=== PATIENT | female | born 1990 | race American Indian/Alaskan Native ===

== ENCOUNTER 2016-11-28 10:45 | Emergency (ER) | payer BC ==
[2016-11-28 11:08] VITALS: BP 136/89
[2016-11-28] MEDS ORDERED: FLEXERIL PO ONE (11:34)
[2016-11-28] MEDS ORDERED: PERCOCET 5/325 PO ONE (11:34)
--- NOTE | 2016-11-28 11:35 | Emergency Department Report ---
HPI - General Chief Complaint: Back Pain/Injury Time Seen by Provider: 11/28/16 11:24 - HPI HPI: This is a 26-year-old patient here with left upper back pain that started yesterday reports radiating to shoulder. Pain worse with movement and better with resting. Pain is 8 out of 10 and achy. She says she took Advil with no relief. Patient says this has happened to her in the past. She works in a warehouse. Last menstrual period was 11/22/2016. Denies any nausea or vomiting. Denies any urinary burning, frequency or urgency. Denies any loss of bowel or bladder control. Denies any numbness or tingling to lower extremities. Denies any chest pain or shortness of breath. Patient has a history of high blood pressure which is controlled. ED Past Medical Hx - Past Medical History Previous Medical History?: No - Surgical History Past Surgical History?: No - Family History Family history: no significant - Social History Smoking Status: Current Every Day Smoker Substance Use Type: None Other Social History: single - Medications Home Medications: Home Medications Medication Instructions Recorded Confirmed Last Taken Type Cyclobenzaprine [Flexeril] 10 mg PO TID PRN #15 tablet 11/28/16 Unknown Rx Ibuprofen [Motrin] 600 mg PO Q8H PRN #15 tablet 11/28/16 Unknown Rx ED Review of Systems ROS: Stated complaint: BACK PAIN Other details as noted in HPI Comment: All other systems reviewed and negative Constitutional: no symptoms reported Respiratory: no symptoms reported Cardiovascular: denies: chest pain, palpitations, edema, syncope Gastrointestinal: denies: abdominal pain, nausea, vomiting, diarrhea, constipation Genitourinary: denies: urgency, dysuria, frequency, hematuria, discharge, abnormal menses Musculoskeletal: back pain, arthralgia. denies: joint swelling, myalgia Skin: denies: rash Neurological: denies: headache, weakness, numbness, paresthesias, confusion, abnormal gait, vertigo Physical Exam - Physical Exam Vital Signs: Vital Signs 11/28/16 11:03 Temperature 97.8 F Pulse Rate 66 Respiratory 16 Rate Blood Pressure 136/89 POX 100% on room air General: This is a 26-year-old female well-nourished well-developed in no acute distress Physical Exam: Head: Normocephalic, atraumatic, no abrasion, no bruising and no contusion. Eyes: Biateral pupils equal and reactive to light, bilateral EOM intact.. Bilateral conjunctival and sclera without injection, normal accommodation. Neck: Supple, no adenopathy, full range of motion and no C-spine tenderness. No swelling or tracheal deviation Cardiovascular: S1, S2. Regular rate and rhythm. No murmur. Capillary refill is less then 3 seconds. Lungs: Clear to auscultate bilaterally. No rhonchi, wheezes or rales. No chest wall tenderness MSK: Strength 5/5 in all extremities. No joint deformity or crepitus. Normal inspection. Full range of motion to all extremities except patient reports that it more painful with movement to her left shoulder. Extremities: No clubbing, cyanosis or edema. +2 pulses. No neurovascular compromise Neurological: GCS is 15, alert and oriented 3, normal gait, negative pronator drift, negative Romberg. No sensory or motor deficit. Speech is clear and fluid and no facial droop . Normal reflexes Back: Full range of motion, normal inspection, no paraspinal or vertebral tenderness. negative SLR bilaterally and no saddle anesthesia Skin: Clean, dry and intact. No rash or lesions. Psych: Normal mood and behavior. ED Course Vital Signs 11/28/16 11:03 Temperature 97.8 F Pulse Rate 66 Respiratory 16 Rate Blood Pressure 136/89 Pulse ox 100% on room air - Reevaluation(s) Reevaluation #1: 11/28/16 12:21 Patient given [place] 5/325 2 tablets and Flexeril 10 mg by mouth in emergency room for pain. ED Medical Decision Making - Medical Decision Making Assessment/plan ED course: Patient here complaining of left upper back pain and its radiating to her left shoulder and she's had similar incident in the past. Seen orthopedic doctor for problem. Physical findings shows no signs of bony abnormality to include dislocation or fracture. I discussed with patient that she might have a rotator cuff injury from lifting heavy objects at work repetitively and she will need to follow up with orthopedic doctor to evaluate her for rotator cuff injury. She voiced understanding of diagnosis and treatment plan and discharged home with her partner in stable condition. 1. Upper back pain, left 2.Arthralgia left shoulder Medication: Patient given [place] 5/325 mg 2 tablets emergency room and Flexeril 10 mg by mouth for relief of pain. Patient discharged home with prescription for Flexeril and Motrin. Patient instructed to follow up with orthopedic doctor in 2 days. Critical care attestation.: If time is entered above; I have spent that time in minutes in the direct care of this critically ill patient, excluding procedure time. ED Disposition Clinical Impression: Arthralgia of left shoulder region, Upper back pain on left side Disposition: DC-01 TO HOME OR SELFCARE Is pt being admited?: No Does the pt Need Aspirin: No Condition: Stable Instructions: Arthralgia (ED), Back Pain (ED) Additional Instructions: Please follow up with orthopedic doctor as instructed Do not drive or operate heavy machinery while taking Flexeril as this medication causes drowsiness Prescriptions: Cyclobenzaprine [Flexeril] 10 mg PO TID PRN #15 tablet PRN Reason: Muscle Spasm Ibuprofen [Motrin] 600 mg PO Q8H PRN #15 tablet PRN Reason: Pain Referrals: AGUILA BRUCE MD [Staff Physician] - 11/30/16 Forms: Work/School Release Form(ED)
== END 2016-11-28 12:40 | disposition home or self-care (01) ==
LOC: ED 10:45
DX: M25.512 Pain in left shoulder (principal); M54.6 Pain in thoracic spine; F17.200 Nicotine dependence, unspecified, uncomplicated
CPT/HCPCS: 99282

== ENCOUNTER 2017-01-08 12:18 | Emergency (ER) | payer SELFPAY ==
[2017-01-08 12:47] VITALS: BP 124/73
--- NOTE | 2017-01-08 12:56 | Emergency Department Report ---
ED General Adult HPI - General Chief complaint: Skin/Abscess/Foreign Body Stated complaint: KNOT ON BACK OF HEAD Time Seen by Provider: 01/08/17 12:42 Source: patient Mode of arrival: Ambulatory Limitations: No Limitations - History of Present Illness Initial comments: PT states she recently went to [address] for [employer]. PT states yesterday she had a small bump on the back of her head. PT states it has gradually increased in pain and size. Pt states she has hx of boils. MD Complaint: abscess -: Gradual, days(s) (2) Location: head Radiation: non-radiation Severity scale (0 -10): 10 Quality: sharp, constant Consistency: constant Associated Symptoms: fever/chills, rash (bumps to back of head ). denies: nausea/vomiting Treatments Prior to Arrival: none - Related Data Previous Rx's Medication Instructions Recorded Last Taken Type Acetaminophen/Codeine [Tylenol #3] 1 tab PO Q6H PRN #12 tab 01/08/17 Unknown Rx Clindamycin [Clindamycin CAP] 300 mg PO Q8H #30 cap 01/08/17 Unknown Rx Ibuprofen [Motrin] 600 mg PO Q8H PRN #15 tablet 01/08/17 Unknown Rx Allergies Allergy/AdvReac Type Severity Reaction Status Date / Time shellfish derived AdvReac Anaphylaxis Verified 11/28/16 11:33 ED Review of Systems ROS: Stated complaint: KNOT ON BACK OF HEAD Other details as noted in HPI Comment: All other systems reviewed and negative Constitutional: chills, other (could not sleep last night due to pain ). denies : fever Gastrointestinal: denies: abdominal pain Genitourinary: denies: abnormal menses (pt states she is irregular, deneis chance of ) Skin: rash (pt states bumps to back of head ) Neurological: headache ED Past Medical Hx - Past Medical History Previous Medical History?: No - Surgical History Past Surgical History?: No - Social History Smoking Status: Current Every Day Smoker Substance Use Type: Alcohol - Medications Home Medications: Home Medications Medication Instructions Recorded Confirmed Last Taken Type Acetaminophen/Codeine [Tylenol #3] 1 tab PO Q6H PRN #12 tab 01/08/17 Unknown Rx Clindamycin [Clindamycin CAP] 300 mg PO Q8H #30 cap 10/03/17 Unknown Rx Ibuprofen [Motrin] 600 mg PO Q8H PRN #15 tablet 01/08/17 Unknown Rx ED Physical Exam - General Limitations: No Limitations General appearance: alert, in no apparent distress - Head Head exam: Present: atraumatic, normocephalic, other (post head with 2 cm erythematous, indurated area, ttp, not fluculant ) - Eye Eye exam: Present: normal appearance, PERRL, EOMI. Absent: conjunctival injection, nystagmus - ENT ENT exam: Present: normal exam, mucous membranes moist, normal external ear exam - Neck Neck exam: Present: normal inspection, full ROM. Absent: tenderness, lymphadenopathy - Respiratory Respiratory exam: Present: normal lung sounds bilaterally. Absent: respiratory distress, chest wall tenderness - Cardiovascular Cardiovascular Exam: Present: regular rate, normal rhythm, normal heart sounds - GI/Abdominal GI/Abdominal exam: Present: soft. Absent: tenderness - Extremities Exam Extremities exam: Present: normal inspection, full ROM - Back Exam Back exam: Present: normal inspection, full ROM. Absent: tenderness, CVA tenderness (R), CVA tenderness (L) - Neurological Exam Neurological exam: Present: alert, oriented X3, CN II-XII intact, normal gait - Expanded Neurological Exam Expanded Patient oriented to: Present: person, place, time Speech: Present: fluid speech Best Eye Response (Carmella): (4) open spontaneously Best Motor Response (Carmella): (6) obeys commands Best Verbal Response (Carmella): (5) oriented [place] Total: 15 - Psychiatric Psychiatric exam: Present: normal affect, normal mood - Skin Skin exam: Present: warm, dry, intact, other (folliculitis noted to nape of neck with abscess ) ED Course Vital Signs 01/08/17 12:42 Temperature 98.3 F Pulse Rate 96 H Respiratory 18 Rate Blood Pressure 124/73 O2 Sat by Pulse 98 Oximetry - Reevaluation(s) Reevaluation #1: 01/08/17 13:00 PT aware that abscess is not ready to be drained. PT encouraged to refrain from smoking. Strict return precautions reviewed. PT has no questions at this time. 01/08/17 17:55 PT left before receiving her RXs - Pulse Oximetry Interpretation Digit-Finger Initial Pulse Oximetry Readin Actions Taken: none ED Medical Decision Making - Differential Diagnosis folliculitis, abscess, cellulitis Critical Care Time: No Critical care attestation.: If time is entered above; I have spent that time in minutes in the direct care of this critically ill patient, excluding procedure time. ED Disposition Clinical Impression: Abscess of scalp Disposition: ELOPED Is pt being admited?: No Does the pt Need Aspirin: No Condition: Stable Instructions: Abscess (ED) Additional Instructions: Please refrain from smoking Warm compresses at least 6 times a day No driving or alcohol after you take Tylenol #3 for pain Return to the ED in 2 days for recheck Finish all antibiotics Prescriptions: Acetaminophen/Codeine [Tylenol #3] 1 tab PO Q6H PRN #12 tab PRN Reason: Pain , Severe (7-10) Clindamycin [Clindamycin CAP] 300 mg PO Q8H #30 cap Ibuprofen [Motrin] 600 mg PO Q8H PRN #15 tablet PRN Reason: Pain Referrals: PRIMARY CAREMD [Primary Care Provider] - 3-5 Days DANNI PAIGE MD [Referring] - 3-5 Days Time of Disposition: 13:14
== END 2017-01-08 14:10 | disposition left against medical advice (07) ==
LOC: ED 12:18
DX: L02.811 Cutaneous abscess of head [any part, except face] (principal); F17.200 Nicotine dependence, unspecified, uncomplicated; Z91.013 Allergy to seafood
CPT/HCPCS: 99281